=== PATIENT | female | born 1965 | race Caucasian/White ===

== ENCOUNTER → 2017-09-11 | Day surgery (SDC) | payer OTHER ==
[~2017-09-11] VITALS: Ht 167.6 cm; Wt 80.3 kg
[~2017-09-11] MED LIST: ALLEGRA ALLERG180 M1 PO; ASPIRIN EC81 M1 PO; COZAAR50 M1 PO; DITROPAN XL15 M1 PO; FLONASE ALLERG9.9 ML NASB; HYDROCHLOROTHIA25 M1 PO; LIPITOR40 M1 PO; LOSARTAN POTASS25 MG PO; METOPROLOL SUCC50 M2 PO; VITAMIN D-32000 UNI1 PO; WELLBUTRIN XL300 M2 PO
--- NOTE | 2017-09-11 16:03 | Operative Report ---
Operative/Inv Procedure Report Surgery Date: 09/11/17 Name of Procedure: urethral sling, cystoscopy Pre-Operative Diagnosis: urethral sling, cystoscopy Post-Operative Diagnosis: same Estimated Blood Loss: less than 50ml Surgeon/Room Service Manager: Nyla Harkins MD Anesthesia: local monitored anesthesi Implants: vaginal mesh Complications: none Condition: stable Operative Indication: stress incontinence Operative/Procedure Note Note: This an operative dictation on patient Mervat Cook Is a 51-year-old female with a hx of stress incontinence that is bothersome. She was interested in sling surgery and was given the risks, benefits and alternatives. All questions were answered and literature was given for her to peruse in the office. She was consented in the holding area. She was taken to the operating room placed on the operating table in the supine position. Timeout was performed. IV antibiotics were infused. IV sedation was started and she was then placed in the dorsal lithotomy position. She was prepped and draped in the standard sterile fashion. She was shaved in the genitalia region. A Lakhani catheter was placed and the bladder was emptied. The Lakhani was placed in the patient's abdomen. 1% lidocaine was infiltrated into the anterior vaginal wall beneath the urethra. An incision was made taking care not to injure the urethra. Vaginal flaps are created on the patient's left and right side. These were carried to the retropubic space. The ALTis sling kit was then opened. Trochars provided were used to place the sling on the patient' s left side followed by the right side. The Prolene tightening stitch was then used to tighten the sling beneath the urethra and was seen to be in a nice tension-free manner with the DeBakey between the urethra and the mesh. The DeBakey was removed and the sling was in a nice were sent orientation. Area was copiously irrigated with bacitracin irrigation. The incision was closed with 3- 0 Vicryl running locking every third suture. There is no mesh in the vaginal fornices. A cystoscopy was performed and the bladder was globally inspected. There is no mesh in the bladder or the urethra or the vaginal fornices. Sponge and needle count were correct at the end of the case. Patient tolerated procedure well. Findings: no mesh in bladder, urethra or vaginal fornices Discharge Disposition: Same Day Admissions
== END ==
LOC: STS 04:11
DX: N39.3 Stress incontinence (female) (male) (principal); N39.41 Urge incontinence; R35.0 Frequency of micturition; N81.10 Cystocele, unspecified; I10 Essential (primary) hypertension; Z87.891 Personal history of nicotine dependence; K21.9 Gastro-esophageal reflux disease without esophagitis; G47.33 Obstructive sleep apnea (adult) (pediatric); E03.9 Hypothyroidism, unspecified; M76.31 Iliotibial band syndrome, right leg
CPT/HCPCS: C1771; J0131; J0690; J2250